=== PATIENT | female | born 1955 | race Caucasian/White ===

== ENCOUNTER 2024-05-30 22:29 | Emergency (ER) | payer MEDICARE, SELFPAY ==
[2024-05-30 22:34] VITALS: BP 173/85; PULSE 70; TEMP 36.5; O2SAT 98; BMI 22.3
--- NOTE | 2024-05-30 22:40 | PC.NURSE ---
FB in belly button, brown noted
--- NOTE | 2024-05-30 22:51 | ED_ITS ---
HPI - Skin/Abscess/Foreign Bdy General Chief complaint: Skin/Abscess/Foreign Body Stated complaint: something in belly button Time Seen by Provider: 05/30/24 22:42 Source: patient Mode of arrival: walk-in Limitations: no limitations History of Present Illness HPI narrative: naval FB. patient scratching a rash just above her umbilicus. she then noticed naval stone and thought there was something in her belly button. She rushed here to have it removed. States her thought it was a worm Related Data Home Medications ?Medication ?Instructions ?Recorded ?Confirmed No Known Home Medications 05/30/24 05/30/24 Allergies Allergy/AdvReac Type Severity Reaction Status Date / Time No Known Drug Allergies Allergy Verified 05/30/24 22:37 Review of Systems 2 ROS0 Status of ROS 10 or more systems reviewed and unremark able except as noted in history and below Exam Constitutional Vital Signs, click to edit/add: Last Vital Signs Temp 97.7 F 05/30/24 22:34 Pulse 70 05/30/24 22:34 Resp 18 05/30/24 22:34 BP 173/85 H 05/30/24 22:34 Pulse Ox 98 05/30/24 22:34 O2 Del Method Room Air 05/30/24 22:34 Common normals: no apparent distress, average body habitus, oriented x3, no limitations, healthy appearing, alert and well nourished [facility] Common normals: normocephalic and head/scalp atraumatic Respiratory Common normals: normal respiratory effort, no retractions, no use of accessory muscles and clear to auscultation bilaterally Cardio Common normals: regular rate, regular rhythm, S1 normal heart sound and S2 normal heart sound GI GI image (female): 2 1. small raised rash just above the umbilicus Extremity Common normals: normal to inspection and full ROM Neuro Common normals: oriented x3, CN's II-XII intact bilaterally, moves all extremities and no focal motor deficits Psych Appearance: grossly normal Course Vital Signs Vital signs: Vital Signs Temperature 97.7 F 05/30/24 22:34 Pulse Rate 70 05/30/24 22:34 Respiratory Rate 18 05/30/24 22:34 Blood Pressure 173/85 H 05/30/24 22:34 Pulse Oximetry 98 05/30/24 22:34 Oxygen Delivery Method Room Air 05/30/24 22:34 Temperature 97.7 F 05/30/24 22:34 Pulse Rate 70 05/30/24 22:34 Respiratory Rate 18 05/30/24 22:34 Blood Pressure 173/85 H 05/30/24 22:34 Pulse Oximetry 98 05/30/24 22:34 Oxygen Delivery Method Room Air 05/30/24 22:34 MDM - Skin/Abscess/Foreign Bdy MDM Narrative Medical decision making narrative: patient presents with a minor rash just above her belly button. She then noticed something within the umbilicus. Had her inspect it and he thought it was a worm. Patient reassured it was a benign naval stone that I was easily able to remove with hemostats. Patient discharged home to follow up with her doctor Discharge Plan Discharge Stand Alone Forms: Portal Instructions Chief Complaint: Skin/Abscess/Foreign Body Clinical Impression: Rash Patient Disposition: Home, Self-Care Prescriptions / Home Meds: No Action No Known Home Medications Print Language: Honduran Instructions: Acute Rash (ED) Referrals: CB LUNA [Primary Care Provider] - 1 week
== END 2024-05-30 23:04 | disposition home or self-care (01) ==
PROVIDERS: Emergency Provider Internal Medicine; PCP Family Medicine
DX: R21 Rash and other nonspecific skin eruption (principal)
CPT/HCPCS: 99281